=== PATIENT | male | born 1945 | race Caucasian/White ===

== ENCOUNTER 2016-10-20 07:14 | Day surgery (SDC) | payer MEDICARE ==
[2016-10-20] MEDS ORDERED: Sodium Chloride 0.9% 1,000 ML IV SCH (07:30)
[2016-10-20] MEDS ORDERED: Propofol 200 MG/20 ML SDV ONE (07:49)
[2016-10-20] MEDS ORDERED: fentaNYL 100 MCG/2 ML SDV ONE (07:49)
[2016-10-20] MEDS ORDERED: Midazolam 1 MG/ML 2 ML SDV ONE (07:49)
[2016-10-20 10:01] VITALS: BP 123/80
--- NOTE | 2016-10-20 14:11 | OR ---
DATE OF PROCEDURE: 10/20/2016 PROCEDURE: Colonoscopy. FINDINGS: 1. Descending colon polyp, 5 mm, completely removed using cold biopsy forceps. 2. Rectal polyp, 5 mm, completely removed using cold biopsy forceps. 3. Diverticulosis, very mild. COMPLICATIONS: None. ROVING CARRIER: None. PREOPERATIVE DIAGNOSIS: Screening colonoscopy. POSTOPERATIVE DIAGNOSIS: Screening colonoscopy. RISKS: Risks, benefits, alternatives, and limitations, including, but not limited to infection, bleeding, perforation were explained to the patient who wished to proceed. PROCEDURE IN DETAIL: The patient was placed in left lateral decubitus position. Digital rectal exam was performed without abnormalities. The scope was introduced and advanced atraumatically to the ileocecal valve. The scope was brought back to the ascending, transverse, descending colon, and retroflexed. The patient was noted to have the aforementioned polyps, which were both small and completely removed using cold biopsy forceps. The patient also has diverticulosis, which was described as very mild, with only a few noted in the sigmoid colon. No abnormalities on retroflexion. The patient tolerated the procedure well. Chris Gleason MD /[id number]
== END 2016-10-20 09:59 | disposition home or self-care (01) ==
LOC: JP.SDS 07:14
PROVIDERS: ATTEND Surgery
DX: Z12.11 Encounter for screening for malignant neoplasm of colon (principal); D12.4 Benign neoplasm of descending colon; K62.1 Rectal polyp; K57.30 Diverticulosis of large intestine without perforation or abscess without bleeding; Z88.8 Allergy status to other drugs, medicaments and biological substances
CPT/HCPCS: 45380; 88305; J2250; J2704; J3010; J7040

== ENCOUNTER 2021-01-14 06:35 | Day surgery (SDC) | payer MEDICARE ==
[2021-01-14] MEDS ORDERED: Sodium Chloride 0.9% 1,000 ML IV SCH (07:00)
[2021-01-14] MEDS ORDERED: fentaNYL 100 MCG/2 ML SDV ONE (07:25)
[2021-01-14] MEDS ORDERED: Midazolam 1 MG/ML 2 ML SDV ONE (07:25)
[2021-01-14] MEDS ORDERED: Propofol 200 MG/20 ML SDV ONE (07:25)
[2021-01-14 09:25] VITALS: BP 167/85; PULSE 60
--- NOTE | 2021-01-14 11:51 | OR ---
DATE OF PROCEDURE: 01/14/2021 SURGEON: Chris Gleason MD PROCEDURE: Colonoscopy. FINDINGS: 1. Ascending colon polyp, approximately 5 mm, completely removed using cold biopsy forceps. 2. Transverse colon polyp, approximately 8 mm, completely removed using hot snare wire device. 3. Descending colon polyp, approximately 5 mm, completely removed using cold biopsy forceps. 4. Rectal polyp, approximately 5 mm, completely removed using cold biopsy forceps. 5. Diverticulosis, mild, mostly limited to sigmoid colon, but scattered throughout. COMPLICATIONS: None. SHADE MAKER: None. PREOPERATIVE DIAGNOSIS: Screening colonoscopy. POSTOPERATIVE DIAGNOSIS: Screening colonoscopy. RISKS: Risks, benefits, alternatives, and limitations including but not limited to infection, bleeding, perforation, false positives and false negatives were explained to the patient and he wished to proceed. PROCEDURE IN DETAIL: The patient was placed in left lateral decubitus position. Digital rectal exam was performed without abnormality. Scope was introduced and advanced atraumatically to the ileocecal valve. A photo was taken of this. Scope was brought back to the ascending, transverse, descending colon, and retroflexed. No evidence of old or new blood. The aforementioned polyps were all removed as described above without any abnormalities. Diverticulosis described as mild, limited to sigmoid colon without evidence of diverticulitis or bleeding. No colitis. The prep was acceptable, approximately 95% of the luminal surface could be seen. Greater than 8 minutes was spent removing the scope. The patient tolerated the procedure well. Chris Gleason MD /[id number]
== END 2021-01-14 09:29 | disposition home or self-care (01) ==
LOC: JP.SDS 06:35
PROVIDERS: ATTEND Surgery
DX: Z12.11 Encounter for screening for malignant neoplasm of colon (principal); D12.2 Benign neoplasm of ascending colon; D12.3 Benign neoplasm of transverse colon; D12.4 Benign neoplasm of descending colon; D12.8 Benign neoplasm of rectum; K57.30 Diverticulosis of large intestine without perforation or abscess without bleeding; I10 Essential (primary) hypertension; E66.9 Obesity, unspecified; K21.9 Gastro-esophageal reflux disease without esophagitis; Z68.27 Body mass index [BMI] 27.0-27.9, adult
CPT/HCPCS: 45380; 45385; J2250; J2704; J3010; J7030; 88305

== ENCOUNTER → 2023-11-05 | Day surgery (SDC) | payer MEDICARE ==
[~2023-11-05] MED LIST: Propofol 200 MG/20 ML SDV ONE; fentaNYL 50 MCG/ML SDV ONE
[2023-11-05] MEDS: Sodium Chloride 0.9% 1,000 ML IV SCH (08:43)
[2023-11-05 11:07] VITALS: BP 122/71; PULSE 60
== END ==
LOC: JP.SDS 07:53
PROVIDERS: ATTEND Surgery
DX: Z12.11 Encounter for screening for malignant neoplasm of colon (principal); K57.30 Diverticulosis of large intestine without perforation or abscess without bleeding; I10 Essential (primary) hypertension; Z79.899 Other long term (current) drug therapy
CPT/HCPCS: J2704; J3010; J7030